=== PATIENT | male | born 1960 | race Caucasian/White ===

== ENCOUNTER → 2020-07-14 | Outpatient (CLI) | payer OTHER ==
[~2020-07-14] MED LIST: ASPIR 8181 MG PO; BACTROBAN15 GM TOP; HIBICLENS; HYGROTON TAB 2525 MG PO; KEFLEX500 MG PO; LIORESAL TAB 1010 MG PO; LISINOPRIL20 MG PO; METOPROLOL SUCC50 MG PO; NORCO 7.5-3251 EACH PO; NORVASC 5 MG TAB5 MG PO
== END ==
LOC: NM 05-30 15:00
DX: I25.10 Atherosclerotic heart disease of native coronary artery without angina pectoris (principal); R94.39 Abnormal result of other cardiovascular function study
CPT/HCPCS: 93017

== ENCOUNTER 2021-10-28 17:42 | Emergency (ER) | payer OTHER ==
[2021-10-28] MEDS ORDERED: BACITRACIN28.4 GM TP (20:36)
== END 2021-10-28 20:57 | disposition home or self-care (01) ==
LOC: ER1 17:42
DX: S67.193A Crushing injury of left middle finger, initial encounter (principal); S61.213A Laceration without foreign body of left middle finger without damage to nail, initial encounter; I10 Essential (primary) hypertension; Z23 Encounter for immunization; Z88.0 Allergy status to penicillin; Z48.817 Encounter for surgical aftercare following surgery on the skin and subcutaneous tissue; W19.XXXA Unspecified fall, initial encounter; Y92.89 Other specified places as the place of occurrence of the external cause; Y99.0 Civilian activity done for income or pay
CPT/HCPCS: 73130; 90471; 90715; 99283